=== PATIENT | male | born 1950 | race African-American/Black ===

== ENCOUNTER 2019-06-04 13:23 | Inpatient (IN) ==
[2019-06-04] MEDS ORDERED: LORazepam 2 MG/1 ML VIAL IV PRN (15:39)
[2019-06-04] MEDS ORDERED: ONDANSETRON 4 MG/2 ML VIAL IV PRN (15:39)
[2019-06-04] MEDS ORDERED: LORazepam 1 MG TABLET PO SCH (16:00)
[2019-06-04 16:27] LABS: Basophils # 0.1 10*3/uL (0.0-0.2); Basophils % 1.1 % (0.0-0.8); Eosinophils # 0.1 10*3/uL (0.0-0.87); Eosinophils % 1.4 % (0.00-10.9); Hematocrit 39.9 VOL% (42.0-52.0); Immature Granulocytes % 0.1 %; Immature Granulocytes Absolute 0.01 #; Lymphocytes # 2.2 10*3/uL (1.4-4.0); Lymphocytes % 27.5 % (21.2-54.2); Mean Corpuscular HGB Conc 32.6 GM/DL (32-36); Mean Corpuscular Volume 93.9 FL (87-102); Mean Platelet Volume 9.7 FL (9.6-12.0); Monocytes % 6.9 % (1.7-12.7); Platelet Count 314 T/CUMM (130-400); Red Blood Count 4.25 MC/CUMM (3.8-5.5)
[2019-06-04 16:57] LABS: Alanine Aminotransferase 14 U/L (16-61); Albumin 3.4 G/DL (3.4-5.0); Alkaline Phosphatase 98 U/L (45-117); Aspartate Amino Transferase 17 U/L (0-37); Bilirubin,Total < 0.39 MG/DL (0.2-1.0); Blood Urea Nitrogen 20 MG/DL (7-18); Calcium 8.6 MG/DL (8.5-10.1); Glucose 77 MG/DL (74-106); Osmolality,Calculated 284.1 MOS/KG (273-304); Total Protein 7.6 G/DL (6.4-8.3)
[2019-06-04] MEDS ORDERED: THIAMINE INJ 100 MG, FOLIC ACID INJ 1 MG, MULTIVITAMIN INJ 10 ML in SODIUM CHLORIDE 0.9... IV ONE (17:00)
[2019-06-04] MEDS: ENOXAPARIN 40 MG/0.4 ML SYRINGE SUBCUT SCH (17:03)
[2019-06-04] MEDS: chlordiazePOXIDE 25 MG CAPSULE PO SCH ×2 (17:03→21:07)
[2019-06-04] MEDS: NICOTINE 21 MG/24 HR PATCH TRANSDERM SCH (17:03)
[2019-06-04] MEDS: METHOCARBAMOL 750 MG TABLET PO PRN (17:08)
[2019-06-04] MEDS: SUCRALFATE 1 GM TABLET PO SCH ×2 (17:36→21:07)
[2019-06-04] MEDS: MORPHINE 4 MG/1 ML VIAL IV PRN ×2 (17:54→23:31)
[2019-06-04] MEDS: PANTOPRAZOLE 40 MG TABLET PO SCH (21:07)
[2019-06-05] MEDS: chlordiazePOXIDE 25 MG CAPSULE PO SCH ×3 (04:08→17:18)
[2019-06-05] MEDS: MORPHINE 4 MG/1 ML VIAL IV PRN (04:58)
[2019-06-05 05:16] LABS: Basophils # 0.1 10*3/uL (0.0-0.2); Eosinophils # 0.2 10*3/uL (0.0-0.87); Eosinophils % 3.4 % (0.00-10.9); Hemoglobin 12.2 GM/DL (14.0-18.0); Immature Granulocytes % 0.3 %; Immature Granulocytes Absolute 0.02 #; Lymphocytes # 2.8 10*3/uL (1.4-4.0); Lymphocytes % 39.8 % (21.2-54.2); Mean Corpuscular HGB Conc 31.3 GM/DL (32-36); Mean Corpuscular Volume 95.1 FL (87-102); Monocytes % 7.3 % (1.7-12.7); Neutrophils % 48.2 % (38.7-73.9); Platelet Count 279 T/CUMM (130-400); Red Cell Distribution Width 13.8 % (9.3-17.3); White Blood Count 7.1 T/CUMM (4-12)
[2019-06-05 05:47] LABS: Alanine Aminotransferase 12 U/L (16-61); Albumin 2.8 G/DL (3.4-5.0); Alkaline Phosphatase 86 U/L (45-117); Aspartate Amino Transferase 15 U/L (0-37); Bilirubin,Total < 0.39 MG/DL (0.2-1.0); Blood Urea Nitrogen 24 MG/DL (7-18); Calcium 8.3 MG/DL (8.5-10.1); Glucose 85 MG/DL (74-106); Osmolality,Calculated 290.7 MOS/KG (273-304); Total Protein 6.5 G/DL (6.4-8.3)
[2019-06-05] MEDS: amLODIPine 5 MG TABLET PO SCH (08:27)
[2019-06-05] MEDS: SUCRALFATE 1 GM TABLET PO SCH ×4 (08:27→21:28)
[2019-06-05] MEDS: PANTOPRAZOLE 40 MG TABLET PO SCH ×2 (08:27→21:28)
[2019-06-05] MEDS ORDERED: PANTOPRAZOLE 40 MG TABLET PO SCH (09:00)
[2019-06-05] MEDS: NICOTINE 21 MG/24 HR PATCH TRANSDERM SCH (10:32)
[2019-06-05] MEDS: METHOCARBAMOL 750 MG TABLET PO PRN ×2 (12:22→21:28)
[2019-06-05] MEDS: LIDOCAINE 5% PATCH TRANSDERM SCH (15:02)
[2019-06-05] MEDS: DICLOFENAC 1% GEL 100 GM TUBE TOP SCH ×2 (15:09→22:06)
[2019-06-05] MEDS: ENOXAPARIN 40 MG/0.4 ML SYRINGE SUBCUT SCH (17:18)
[2019-06-05] MEDS ORDERED: IBUPROFEN 600 MG TABLET PO PRN (21:18)
[2019-06-06] MEDS: chlordiazePOXIDE 25 MG CAPSULE PO SCH ×4 (02:45→23:21)
[2019-06-06 06:10] LABS: Basophils # 0.1 10*3/uL (0.0-0.2); Basophils % 1.1 % (0.0-0.8); Eosinophils # 0.2 10*3/uL (0.0-0.87); Eosinophils % 2.9 % (0.00-10.9); Hematocrit 39.3 VOL% (42.0-52.0); Hemoglobin 12.5 GM/DL (14.0-18.0); Immature Granulocytes % 0.2 %; Immature Granulocytes Absolute 0.01 #; Lymphocytes # 2.1 10*3/uL (1.4-4.0); Mean Corpuscular HGB Conc 31.8 GM/DL (32-36); Mean Corpuscular Volume 95.6 FL (87-102); Mean Platelet Volume 11.5 FL (9.6-12.0); Neutrophils % 56.8 % (38.7-73.9); Platelet Count 203 T/CUMM (130-400); Red Blood Count 4.11 MC/CUMM (3.8-5.5); Red Cell Distribution Width 13.7 % (9.3-17.3); White Blood Count 6.6 T/CUMM (4-12)
[2019-06-06] MEDS: METHOCARBAMOL 750 MG TABLET PO PRN ×2 (06:15→20:49)
[2019-06-06 06:44] LABS: Alanine Aminotransferase 13 U/L (16-61); Albumin 2.8 G/DL (3.4-5.0); Alkaline Phosphatase 85 U/L (45-117); Aspartate Amino Transferase 17 U/L (0-37); Bilirubin,Total < 0.39 MG/DL (0.2-1.0); Blood Urea Nitrogen 20 MG/DL (7-18); Calcium 8.4 MG/DL (8.5-10.1); Glucose 74 MG/DL (74-106); Osmolality,Calculated 276.7 MOS/KG (273-304); Total Protein 6.6 G/DL (6.4-8.3)
[2019-06-06] MEDS: PANTOPRAZOLE 40 MG TABLET PO SCH ×2 (09:37→20:51)
[2019-06-06] MEDS: NICOTINE 21 MG/24 HR PATCH TRANSDERM SCH (09:37)
[2019-06-06] MEDS: SUCRALFATE 1 GM TABLET PO SCH ×4 (09:37→20:49)
[2019-06-06] MEDS: amLODIPine 5 MG TABLET PO SCH (09:37)
[2019-06-06] MEDS: LIDOCAINE 5% PATCH TRANSDERM SCH (13:30)
[2019-06-06] MEDS: DICLOFENAC 1% GEL 100 GM TUBE TOP SCH ×3 (13:33→21:11)
[2019-06-06] MEDS: ENOXAPARIN 40 MG/0.4 ML SYRINGE SUBCUT SCH (16:12)
[2019-06-06] MEDS ORDERED: MAGNESIUM SULF RIDER 2 GM in PREMIX 1 EACH IV ONE (18:37)
[2019-06-06] MEDS ORDERED: PROPRANOLOL 20 MG TABLET PO SCH (21:00)
[2019-06-07 06:33] LABS: Basophils # 0.1 10*3/uL (0.0-0.2); Eosinophils # 0.2 10*3/uL (0.0-0.87); Eosinophils % 2.7 % (0.00-10.9); Hematocrit 40.1 VOL% (42.0-52.0); Immature Granulocytes % 0.1 %; Immature Granulocytes Absolute 0.01 #; Lymphocytes # 2.3 10*3/uL (1.4-4.0); Lymphocytes % 25.5 % (21.2-54.2); Mean Corpuscular HGB Conc 32.4 GM/DL (32-36); Mean Corpuscular Volume 93.9 FL (87-102); Mean Platelet Volume 10.4 FL (9.6-12.0); Monocytes % 5.7 % (1.7-12.7); Platelet Count 313 T/CUMM (130-400); Red Blood Count 4.27 MC/CUMM (3.8-5.5); Red Cell Distribution Width 13.8 % (9.3-17.3); White Blood Count 8.9 T/CUMM (4-12)
[2019-06-07 07:09] LABS: Alanine Aminotransferase 22 U/L (16-61); Albumin 3.5 G/DL (3.4-5.0); Alkaline Phosphatase 96 U/L (45-117); Aspartate Amino Transferase 28 U/L (0-37); Bilirubin,Total < 0.39 MG/DL (0.2-1.0); Blood Urea Nitrogen 41 MG/DL (7-18); Calcium 9.3 MG/DL (8.5-10.1); Glucose 91 MG/DL (74-106); Osmolality,Calculated 284.7 MOS/KG (273-304); Total Protein 7.9 G/DL (6.4-8.3)
[2019-06-07] MEDS ORDERED: PROPRANOLOL 20 MG TABLET PO SCH (09:00)
[2019-06-07 10:08] VITALS: BP 142/85
[2019-06-07] MEDS: PANTOPRAZOLE 40 MG TABLET PO SCH (10:08)
[2019-06-07] MEDS: chlordiazePOXIDE 25 MG CAPSULE PO SCH (10:08)
[2019-06-07] MEDS: SUCRALFATE 1 GM TABLET PO SCH (10:09)
[2019-06-07] MEDS: LIDOCAINE 5% PATCH TRANSDERM SCH ×2 (10:09→10:14)
[2019-06-07] MEDS: NICOTINE 21 MG/24 HR PATCH TRANSDERM SCH (10:09)
[2019-06-07] MEDS: DICLOFENAC 1% GEL 100 GM TUBE TOP SCH (10:12)
== END 2019-06-07 11:15 | DRG 897 ==
LOC: N.4E 14:18
PROVIDERS: ADMIT Internal Medicine; ATTEND Internal Medicine

== ENCOUNTER 2019-12-08 03:27 | Observation (INO) ==
[2019-12-08] MEDS ORDERED: MORPHINE 4 MG/1 ML VIAL IV STA (03:45)
[2019-12-08] MEDS ORDERED: NITROGLYCERIN 2% OINT 1 INCH/GM PACK TOP STA (03:45)
[2019-12-08] MEDS ORDERED: ALUM/MAG/SIMETH/LIDO VISC 1:1 30 ML BOTTLE PO STA (03:45)
[2019-12-08] MEDS ORDERED: ASPIRIN 325 MG TABLET PO STA (03:45)
[2019-12-08] MEDS ORDERED: ONDANSETRON 4 MG/2 ML VIAL IV STA (03:45)
[2019-12-08] MEDS ORDERED: PANTOPRAZOLE 40 MG VIAL IV STA (03:45)
[2019-12-08] MEDS ORDERED: ALUM/MAG/SIMETH/LIDO VISC 1:1 30 ML BOTTLE PO ONE (03:45)
[2019-12-08] MEDS ORDERED: NITROGLYCERIN 2% OINT 1 INCH/GM PACK TOP ONE (04:11)
[2019-12-08] MEDS ORDERED: ONDANSETRON 4 MG/2 ML VIAL ONE (04:11)
[2019-12-08] MEDS ORDERED: ASPIRIN 325 MG TABLET ONE (04:12)
[2019-12-08] MEDS ORDERED: MORPHINE 4 MG/1 ML VIAL ONE (04:12)
[2019-12-08 04:16] LABS: Basophils # 0.1 10*3/uL (0.0-0.2); Basophils % 0.6 % (0.0-0.8); Eosinophils % 0.2 % (0.00-10.9); Hematocrit 44.4 VOL% (42.0-52.0); Hemoglobin 14.6 GM/DL (14.0-18.0); Immature Granulocytes % 0.2 %; Immature Granulocytes Absolute 0.04 #; Lymphocytes # 1.2 10*3/uL (1.4-4.0); Lymphocytes % 6.8 % (21.2-54.2); Mean Corpuscular HGB Conc 32.9 GM/DL (32-36); Mean Corpuscular Volume 92.1 FL (87-102); Mean Platelet Volume 9.3 FL (9.6-12.0); Monocytes % 3.8 % (1.7-12.7); Neutrophils % 88.4 % (38.7-73.9); Platelet Count 365 T/CUMM (130-400); Red Blood Count 4.82 MC/CUMM (3.8-5.5); Red Cell Distribution Width 13.6 % (9.3-17.3)
[2019-12-08 04:28] LABS: INR 0.9; PT Patient Result 9.9 SECS (9.6-12.2)
[2019-12-08 04:53] LABS: Albumin 3.7 G/DL (3.4-5.0); Bilirubin,Total 1.3 MG/DL (0.2-1.0); Calcium 9.6 MG/DL (8.5-10.1); Osmolality,Calculated 269.4 MOS/KG (273-304); Total Protein 8.7 G/DL (6.4-8.3)
[2019-12-08] MEDS ORDERED: PIPERACILLIN/TAZOBACTAM 3,375 MG in SODIUM CHLORIDE 0.9% 100 ML IV STA (04:56)
[2019-12-08] MEDS ORDERED: PANTOPRAZOLE 40 MG VIAL IV ONE (05:06)
[2019-12-08] MEDS ORDERED: PIPERACILLIN/TAZOBACTAM 3,375 MG VIAL IV ONE (05:07)
[2019-12-08] MEDS ORDERED: ONDANSETRON 4 MG/2 ML VIAL IV PRN (06:51)
[2019-12-08] MEDS: SODIUM CHLORIDE 0.9% 1,000 ML IV SCH (07:10)
[2019-12-08] MEDS: ENOXAPARIN 40 MG/0.4 ML SYRINGE SUBCUT SCH (08:07)
[2019-12-08] MEDS: MORPHINE 4 MG/1 ML VIAL IV PRN ×3 (08:07→21:56)
[2019-12-08] MEDS: TAMSULOSIN 0.4 MG CAPSULE PO SCH (10:26)
[2019-12-08] MEDS: amLODIPine 10 MG TABLET PO SCH (10:26)
[2019-12-08] MEDS: PANTOPRAZOLE 40 MG TABLET PO SCH (10:26)
[2019-12-08] MEDS: AZITHROMYCIN 250 MG TABLET PO SCH (10:26)
[2019-12-08] MEDS: FLUTICASONE 50 MCG NASAL SPRAY 16 GM BOTTLE BOTH NARES SCH (10:27)
[2019-12-08] MEDS: cefTRIAXone 2,000 MG in SYRINGE 1 EACH IV SCH (10:27)
[2019-12-08] MEDS ORDERED: REGADENOSON 0.4 MG/5 ML SYRINGE IV ONE (11:55)
[2019-12-09] MEDS: SODIUM CHLORIDE 0.9% 1,000 ML IV SCH (00:51)
[2019-12-09] MEDS: MORPHINE 4 MG/1 ML VIAL IV PRN (03:20)
[2019-12-09 05:39] LABS: Basophils # 0.1 10*3/uL (0.0-0.2); Basophils % 0.6 % (0.0-0.8); Eosinophils # 0.2 10*3/uL (0.0-0.87); Eosinophils % 1.2 % (0.00-10.9); Hematocrit 39.3 VOL% (42.0-52.0); Hemoglobin 13.2 GM/DL (14.0-18.0); Immature Granulocytes % 0.3 %; Immature Granulocytes Absolute 0.04 #; Lymphocytes # 1.7 10*3/uL (1.4-4.0); Lymphocytes % 13.5 % (21.2-54.2); Mean Corpuscular HGB Conc 33.6 GM/DL (32-36); Mean Corpuscular Volume 92.5 FL (87-102); Mean Platelet Volume 9.7 FL (9.6-12.0); Monocytes % 6.3 % (1.7-12.7); Neutrophils % 78.1 % (38.7-73.9); Platelet Count 319 T/CUMM (130-400); Red Blood Count 4.25 MC/CUMM (3.8-5.5); Red Cell Distribution Width 13.7 % (9.3-17.3); White Blood Count 12.5 T/CUMM (4-12)
[2019-12-09 06:07] LABS: Calcium 8.6 MG/DL (8.5-10.1); Osmolality,Calculated 270.4 MOS/KG (273-304)
[2019-12-09] MEDS: ENOXAPARIN 40 MG/0.4 ML SYRINGE SUBCUT SCH (06:27)
[2019-12-09] MEDS: AZITHROMYCIN 250 MG TABLET PO SCH (08:41)
[2019-12-09] MEDS: FLUTICASONE 50 MCG NASAL SPRAY 16 GM BOTTLE BOTH NARES SCH (08:41)
[2019-12-09] MEDS: TAMSULOSIN 0.4 MG CAPSULE PO SCH (08:41)
[2019-12-09] MEDS: amLODIPine 10 MG TABLET PO SCH (08:42)
[2019-12-09] MEDS: cefTRIAXone 2,000 MG in SYRINGE 1 EACH IV SCH ×2 (08:42→10:47)
[2019-12-09] MEDS: PANTOPRAZOLE 40 MG TABLET PO SCH (08:42)
[2019-12-09 12:34] VITALS: BP 146/71
== END 2019-12-09 13:35 | disposition home or self-care (01) ==
LOC: SUATTDRO → EDBD → EDUNIT# → N.EDINP 03:27 → N.ED 03:27 → N.2W 08:42
PROVIDERS: ADMIT Internal Medicine; ATTEND Internal Medicine

== ENCOUNTER 2019-12-21 15:12 | Inpatient (IN) ==
[2019-12-21] MEDS ORDERED: SODIUM CHLORIDE 0.9% 500 ML IV STA (15:34)
[2019-12-21] MEDS ORDERED: ONDANSETRON 4 MG/2 ML VIAL IV STA (15:36)
[2019-12-21] MEDS ORDERED: ONDANSETRON 4 MG/2 ML VIAL ONE (15:38)
[2019-12-21 15:50] LABS: Basophils # 0.1 10*3/uL (0.0-0.2); Basophils % 0.3 % (0.0-0.8); Hematocrit 43.7 VOL% (42.0-52.0); Hemoglobin 14.7 GM/DL (14.0-18.0); Immature Granulocytes % 0.5 %; Immature Granulocytes Absolute 0.13 #; Lymphocytes % 3.6 % (21.2-54.2); Mean Corpuscular HGB Conc 33.6 GM/DL (32-36); Mean Corpuscular Volume 90.1 FL (87-102); Mean Platelet Volume 9.8 FL (9.6-12.0); Monocytes % 4.8 % (1.7-12.7); Neutrophils % 90.8 % (38.7-73.9); Platelet Count 482 T/CUMM (130-400); Red Blood Count 4.85 MC/CUMM (3.8-5.5); Red Cell Distribution Width 13.3 % (9.3-17.3)
[2019-12-21 16:14] LABS: Albumin 3.8 G/DL (3.4-5.0); Bilirubin,Total 0.8 MG/DL (0.2-1.0); Calcium 9.4 MG/DL (8.5-10.1); Total Protein 8.6 G/DL (6.4-8.3)
[2019-12-21 16:30] LABS: Hypochromasia 2+; Lymphocytes 2 % (20-55); Segmented Neutrophils 90 % (50-85); Total Cells Counted 100
[2019-12-21 16:31] LABS: Anisocytosis Slight; Polychromasia Few
[2019-12-21 16:33] LABS: Platelet Estimate Normal
[2019-12-21] MEDS: NICOTINE 14 MG/24 HR PATCH TRANSDERM SCH (19:09)
[2019-12-21] MEDS: PIPERACILLIN/TAZOBACTAM 3,375 MG in SODIUM CHLORIDE 0.9% 100 ML IV SCH (19:10)
[2019-12-21] MEDS: SODIUM CHLORIDE 0.9% 1,000 ML IV SCH (19:10)
[2019-12-21 19:11] LABS: Apearance,Urine CLEAR (Clear); Bilirubin,Urine Negative (Negative); Blood, Urine Small mg/dL (Negative); Glucose,Urine (UA) Negative (Negative); Hyaline Casts,Urine 6 /LPF (0-3); Ketones,Urine 80 mg/dL (Negative); Nitrite,Urine Negative (Negative); Protein,Urine 100 MG/DL; RBC,Urine 2 /HPF (0-4); Squamous Epithelial Cell,Urine Occasional /HPF (0-10); Urine Color Yellow (Yellow); Urine Urobilinogen < 2.0 EU/DL (0.2-1.0); WBC,Urine 1 /HPF (0-6)
[2019-12-21] MEDS ORDERED: INFLUENZA VIRUS VACCINE 0.5 ML SYRINGE IM ONE (19:22)
[2019-12-21] MEDS ORDERED: POTASSIUM CHLORIDE 20 MEQ/15 ML UDCUP PO ONE (19:48)
[2019-12-21] MEDS ORDERED: ONDANSETRON 4 MG TABLET PO PRN (19:48)
[2019-12-21] MEDS ORDERED: THIAMINE INJ 100 MG, FOLIC ACID INJ 1 MG, MULTIVITAMIN INJ 10 ML in SODIUM CHLORIDE 0.9... IV ONE (20:00)
[2019-12-21 20:40] LABS: Hematocrit 44.1 VOL% (42.0-52.0); Hemoglobin 14.6 GM/DL (14.0-18.0)
[2019-12-21 20:49] LABS: INR 0.9; PT Patient Result 10.2 SECS (9.6-12.2)
[2019-12-21] MEDS: PANTOPRAZOLE 40 MG VIAL IV SCH (20:59)
[2019-12-21 21:02] LABS: Troponin I < 0.015 NG/ML (0.00-0.045)
[2019-12-21] MEDS: CYCLOBENZAPRINE 10 MG TABLET PO SCH (21:06)
[2019-12-21] MEDS: ACETAMINOPHEN 325 MG TABLET PO PRN (22:30)
[2019-12-22] MEDS: PIPERACILLIN/TAZOBACTAM 3,375 MG in SODIUM CHLORIDE 0.9% 100 ML IV SCH ×3 (02:32→17:30)
[2019-12-22 03:01] LABS: Barbiturates Screen,Urine Negative (Negative); Benzodiazepines Screen,Urine Negative (Negative); Cannabinoid Screen,Urine Negative (Negative); Opiate Screen,Urine Negative (Negative); Phencyclidine Screen,Urine Negative (Negative)
[2019-12-22] MEDS: ACETAMINOPHEN 325 MG TABLET PO PRN ×2 (03:41→21:44)
[2019-12-22] MEDS: SODIUM CHLORIDE 0.9% 1,000 ML IV SCH ×3 (04:20→21:43)
[2019-12-22 06:00] LABS: Hematocrit 36.6 VOL% (42.0-52.0); Hemoglobin 12.3 GM/DL (14.0-18.0); Mean Corpuscular HGB Conc 33.6 GM/DL (32-36); Mean Corpuscular Volume 90.1 FL (87-102); Red Blood Count 4.06 MC/CUMM (3.8-5.5); White Blood Count 26.7 T/CUMM (4-12)
[2019-12-22 06:01] LABS: Basophils # 0.1 10*3/uL (0.0-0.2); Basophils % 0.3 % (0.0-0.8); Immature Granulocytes % 0.6 %; Immature Granulocytes Absolute 0.15 #; Lymphocytes # 1.6 10*3/uL (1.4-4.0); Lymphocytes % 5.8 % (21.2-54.2); Mean Platelet Volume 9.8 FL (9.6-12.0); Monocytes % 5.2 % (1.7-12.7); Neutrophils % 88.1 % (38.7-73.9); Platelet Count 382 T/CUMM (130-400); Red Cell Distribution Width 13.6 % (9.3-17.3)
[2019-12-22 06:15] LABS: Calcium 8.5 MG/DL (8.5-10.1); Osmolality,Calculated 284.4 MOS/KG (273-304)
[2019-12-22 06:23] LABS: Band Neutrophils 1 % (0-10); Hypochromasia 1+; Lymphocytes 6 % (20-55); Segmented Neutrophils 92 % (50-85); Total Cells Counted 100
[2019-12-22 06:24] LABS: Macrocytosis Slight
[2019-12-22] MEDS: amLODIPine 10 MG TABLET PO SCH (08:53)
[2019-12-22] MEDS: NICOTINE 14 MG/24 HR PATCH TRANSDERM SCH (08:53)
[2019-12-22] MEDS: PANTOPRAZOLE 40 MG VIAL IV SCH ×2 (08:53→21:42)
[2019-12-22] MEDS: FLUTICASONE 50 MCG NASAL SPRAY 16 GM BOTTLE BOTH NARES SCH (08:54)
[2019-12-22] MEDS: TAMSULOSIN 0.4 MG CAPSULE PO SCH (08:54)
[2019-12-22] MEDS: POTASSIUM CHLORIDE RIDER 10 MEQ in PREMIX 1 EACH IV PRN ×3 (10:37→13:44)
[2019-12-22] MEDS: LORazepam 2 MG/1 ML VIAL IV PRN ×2 (17:20→21:45)
[2019-12-22] MEDS: ALUMINUM/MAGNES/SIMETH MAX STR 30 ML UDCUP PO PRN (19:37)
[2019-12-22] MEDS: ONDANSETRON 4 MG/2 ML VIAL IV PRN (19:44)
[2019-12-22] MEDS: LORATADINE 10 MG TABLET PO PRN (21:43)
[2019-12-22] MEDS: CYCLOBENZAPRINE 10 MG TABLET PO SCH (21:44)
[2019-12-23] MEDS: PIPERACILLIN/TAZOBACTAM 3,375 MG in SODIUM CHLORIDE 0.9% 100 ML IV SCH ×3 (02:39→17:39)
[2019-12-23 05:21] LABS: Basophils # 0.1 10*3/uL (0.0-0.2); Basophils % 0.6 % (0.0-0.8); Eosinophils # 0.2 10*3/uL (0.0-0.87); Eosinophils % 0.9 % (0.00-10.9); Hematocrit 36.6 VOL% (42.0-52.0); Hemoglobin 11.9 GM/DL (14.0-18.0); Immature Granulocytes % 0.6 %; Immature Granulocytes Absolute 0.11 #; Lymphocytes # 1.2 10*3/uL (1.4-4.0); Lymphocytes % 6.1 % (21.2-54.2); Mean Corpuscular HGB Conc 32.5 GM/DL (32-36); Mean Corpuscular Volume 93.6 FL (87-102); Mean Platelet Volume 9.9 FL (9.6-12.0); Monocytes % 4.6 % (1.7-12.7); Neutrophils % 87.2 % (38.7-73.9); Platelet Count 334 T/CUMM (130-400); Red Blood Count 3.91 MC/CUMM (3.8-5.5); Red Cell Distribution Width 13.8 % (9.3-17.3); White Blood Count 19.4 T/CUMM (4-12)
[2019-12-23 05:50] LABS: Calcium 8.5 MG/DL (8.5-10.1); Osmolality,Calculated 271.8 MOS/KG (273-304)
[2019-12-23] MEDS: SODIUM CHLORIDE 0.9% 1,000 ML IV SCH ×3 (06:05→16:37)
[2019-12-23] MEDS ORDERED: propofoL 200 MG/20 ML VIAL IV ONE (09:00)
[2019-12-23] MEDS ORDERED: LIDOCAINE 100 MG/5 ML SYRINGE ONE (09:00)
[2019-12-23] MEDS: amLODIPine 10 MG TABLET PO SCH (09:02)
[2019-12-23] MEDS: NICOTINE 14 MG/24 HR PATCH TRANSDERM SCH (09:02)
[2019-12-23] MEDS: TAMSULOSIN 0.4 MG CAPSULE PO SCH (09:02)
[2019-12-23] MEDS: PANTOPRAZOLE 40 MG VIAL IV SCH ×2 (09:03→20:41)
[2019-12-23] MEDS: FLUTICASONE 50 MCG NASAL SPRAY 16 GM BOTTLE BOTH NARES SCH (09:03)
[2019-12-23] MEDS: LACTATED RINGERS 1,000 ML IV SCH ×2 (09:03→09:30)
[2019-12-23] MEDS: POTASSIUM CHLORIDE RIDER 10 MEQ in PREMIX 1 EACH IV PRN ×4 (12:02→16:37)
[2019-12-23] MEDS: ALUMINUM/MAGNES/SIMETH MAX STR 30 ML UDCUP PO PRN ×2 (13:41→20:41)
[2019-12-23] MEDS: ACETAMINOPHEN 325 MG TABLET PO PRN ×2 (13:42→20:41)
[2019-12-23] MEDS: LORATADINE 10 MG TABLET PO PRN (20:41)
[2019-12-23] MEDS: CYCLOBENZAPRINE 10 MG TABLET PO SCH (20:41)
[2019-12-23] MEDS: LORazepam 2 MG/1 ML VIAL IV PRN (20:42)
[2019-12-23] MEDS: ONDANSETRON 4 MG/2 ML VIAL IV PRN (20:43)
[2019-12-24] MEDS: SODIUM CHLORIDE 0.9% 1,000 ML IV SCH ×2 (01:22→18:38)
[2019-12-24] MEDS: POTASSIUM CHLORIDE RIDER 10 MEQ in PREMIX 1 EACH IV PRN ×2 (01:23→03:03)
[2019-12-24] MEDS: PIPERACILLIN/TAZOBACTAM 3,375 MG in SODIUM CHLORIDE 0.9% 100 ML IV SCH ×3 (02:31→18:37)
[2019-12-24] MEDS: ALUMINUM/MAGNES/SIMETH MAX STR 30 ML UDCUP PO PRN (06:57)
[2019-12-24] MEDS: TAMSULOSIN 0.4 MG CAPSULE PO SCH (10:24)
[2019-12-24] MEDS: FLUTICASONE 50 MCG NASAL SPRAY 16 GM BOTTLE BOTH NARES SCH (10:24)
[2019-12-24] MEDS: NICOTINE 14 MG/24 HR PATCH TRANSDERM SCH (10:24)
[2019-12-24] MEDS: PANTOPRAZOLE 40 MG VIAL IV SCH ×2 (10:24→22:01)
[2019-12-24] MEDS: amLODIPine 10 MG TABLET PO SCH (10:33)
[2019-12-24] MEDS: LORazepam 2 MG/1 ML VIAL IV PRN (10:34)
[2019-12-24] MEDS: SUCRALFATE 1 GM/10 ML UDCUP PO SCH ×2 (16:49→22:02)
[2019-12-24] MEDS: ALUM/MAG/SIMETH/LIDO VISC 1:1 30 ML BOTTLE PO PRN (18:48)
[2019-12-24] MEDS: CYCLOBENZAPRINE 10 MG TABLET PO SCH (22:02)
[2019-12-25] MEDS: PIPERACILLIN/TAZOBACTAM 3,375 MG in SODIUM CHLORIDE 0.9% 100 ML IV SCH ×3 (02:53→21:19)
[2019-12-25 06:22] LABS: Basophils # 0.1 10*3/uL (0.0-0.2); Basophils % 0.8 % (0.0-0.8); Eosinophils # 0.6 10*3/uL (0.0-0.87); Eosinophils % 4.4 % (0.00-10.9); Hematocrit 36.2 VOL% (42.0-52.0); Hemoglobin 11.7 GM/DL (14.0-18.0); Immature Granulocytes % 0.4 %; Immature Granulocytes Absolute 0.05 #; Lymphocytes # 1.9 10*3/uL (1.4-4.0); Lymphocytes % 15.4 % (21.2-54.2); Mean Corpuscular HGB Conc 32.3 GM/DL (32-36); Mean Corpuscular Volume 93.3 FL (87-102); Mean Platelet Volume 10.1 FL (9.6-12.0); Monocytes % 6.2 % (1.7-12.7); Neutrophils % 72.8 % (38.7-73.9); Platelet Count 333 T/CUMM (130-400); Red Blood Count 3.88 MC/CUMM (3.8-5.5); Red Cell Distribution Width 13.3 % (9.3-17.3); White Blood Count 12.5 T/CUMM (4-12)
[2019-12-25 06:51] LABS: Calcium 8.7 MG/DL (8.5-10.1)
[2019-12-25] MEDS ORDERED: MAGNESIUM SULF RIDER 2 GM in PREMIX 1 EACH IV PRN (07:48)
[2019-12-25] MEDS ORDERED: MAGNESIUM SULF RIDER 4 GM in PREMIX 1 EACH IV PRN (07:48)
[2019-12-25] MEDS: SUCRALFATE 1 GM/10 ML UDCUP PO SCH ×4 (09:17→21:20)
[2019-12-25] MEDS: FOLIC ACID 1 MG TABLET PO SCH (09:17)
[2019-12-25] MEDS: amLODIPine 10 MG TABLET PO SCH (09:18)
[2019-12-25] MEDS: TAMSULOSIN 0.4 MG CAPSULE PO SCH (09:18)
[2019-12-25] MEDS: NICOTINE 14 MG/24 HR PATCH TRANSDERM SCH (09:20)
[2019-12-25] MEDS: FLUTICASONE 50 MCG NASAL SPRAY 16 GM BOTTLE BOTH NARES SCH (09:20)
[2019-12-25] MEDS: PANTOPRAZOLE 40 MG VIAL IV SCH ×2 (09:22→22:36)
[2019-12-25] MEDS: ALUM/MAG/SIMETH/LIDO VISC 1:1 30 ML BOTTLE PO PRN (17:05)
[2019-12-25] MEDS: SODIUM CHLORIDE 0.9% 1,000 ML IV SCH (17:05)
[2019-12-25] MEDS: CYCLOBENZAPRINE 10 MG TABLET PO SCH (21:20)
[2019-12-26] MEDS: PIPERACILLIN/TAZOBACTAM 3,375 MG in SODIUM CHLORIDE 0.9% 100 ML IV SCH ×2 (05:34→14:01)
[2019-12-26] MEDS: SODIUM CHLORIDE 0.9% 1,000 ML IV SCH ×4 (05:35→09:54)
[2019-12-26] MEDS: ALUM/MAG/SIMETH/LIDO VISC 1:1 30 ML BOTTLE PO PRN (05:43)
[2019-12-26 09:17] LABS: Basophils # 0.1 10*3/uL (0.0-0.2); Basophils % 0.8 % (0.0-0.8); Eosinophils # 0.6 10*3/uL (0.0-0.87); Eosinophils % 5.1 % (0.00-10.9); Hematocrit 38.2 VOL% (42.0-52.0); Hemoglobin 12.2 GM/DL (14.0-18.0); Immature Granulocytes % 0.3 %; Immature Granulocytes Absolute 0.04 #; Lymphocytes # 1.9 10*3/uL (1.4-4.0); Lymphocytes % 15.8 % (21.2-54.2); Mean Corpuscular HGB Conc 31.9 GM/DL (32-36); Mean Corpuscular Volume 92.5 FL (87-102); Mean Platelet Volume 9.8 FL (9.6-12.0); Monocytes % 6.1 % (1.7-12.7); Neutrophils % 71.9 % (38.7-73.9); Platelet Count 351 T/CUMM (130-400); Red Blood Count 4.13 MC/CUMM (3.8-5.5); Red Cell Distribution Width 13.2 % (9.3-17.3); White Blood Count 11.8 T/CUMM (4-12)
[2019-12-26 09:41] LABS: Osmolality,Calculated 261.7 MOS/KG (273-304)
[2019-12-26] MEDS: FOLIC ACID 1 MG TABLET PO SCH (09:48)
[2019-12-26] MEDS: SUCRALFATE 1 GM/10 ML UDCUP PO SCH ×2 (09:48→12:41)
[2019-12-26] MEDS: LORATADINE 10 MG TABLET PO PRN (09:48)
[2019-12-26] MEDS: amLODIPine 10 MG TABLET PO SCH (09:48)
[2019-12-26] MEDS: TAMSULOSIN 0.4 MG CAPSULE PO SCH (09:48)
[2019-12-26] MEDS: NICOTINE 14 MG/24 HR PATCH TRANSDERM SCH (09:49)
[2019-12-26] MEDS: FLUTICASONE 50 MCG NASAL SPRAY 16 GM BOTTLE BOTH NARES SCH (09:49)
[2019-12-26] MEDS: PANTOPRAZOLE 40 MG VIAL IV SCH (09:50)
[2019-12-26 13:31] VITALS: BP 136/82
== END 2019-12-26 14:15 | disposition home health service (06) | DRG 378 ==
LOC: N.ED 15:12 → N.EDINP 17:27 → SUATTDRO 17:27 → N.5E 18:14
PROVIDERS: ADMIT Internal Medicine; ATTEND Internal Medicine Cardiovascular Disease

== ENCOUNTER 2021-02-01 10:15 | Inpatient (IN) ==
[2021-02-01] MEDS ORDERED: ALUM/MAG/SIMETH/LIDO VISC 1:1 30 ML BOTTLE PO STA (10:31)
[2021-02-01] MEDS ORDERED: SODIUM CHLORIDE 0.9% 1,000 ML IV STA ×3 (10:31→14:17)
[2021-02-01] MEDS ORDERED: LOPERAMIDE 2 MG CAPSULE PO STA (10:31)
[2021-02-01] MEDS ORDERED: ONDANSETRON 4 MG/2 ML VIAL IV STA ×2 (10:31→12:39)
[2021-02-01 12:04] LABS: Basophils # 0.1 10*3/uL (0.0-0.2); Basophils % 0.4 % (0.0-0.8); Hematocrit 37.2 VOL% (42.0-52.0); Immature Granulocytes % 0.4 %; Immature Granulocytes Absolute 0.09 #; Lymphocytes # 1.7 10*3/uL (1.4-4.0); Lymphocytes % 7.2 % (21.2-54.2); Mean Corpuscular HGB Conc 32.3 GM/DL (32-36); Mean Corpuscular Volume 90.3 FL (87-102); Mean Platelet Volume 9.1 FL (9.6-12.0); Monocytes % 5.8 % (1.7-12.7); Neutrophils % 86.2 % (38.7-73.9); Platelet Count 387 T/CUMM (130-400); Red Blood Count 4.12 MC/CUMM (3.8-5.5); Red Cell Distribution Width 13.8 % (9.3-17.3); White Blood Count 23.3 T/CUMM (4-12)
[2021-02-01 12:32] LABS: Albumin 3.1 G/DL (3.4-5.0); Bilirubin,Total 0.6 MG/DL (0.2-1.0); Calcium 8.8 MG/DL (8.5-10.1); Osmolality,Calculated 278.4 MOS/KG (273-304); Total Protein 7.9 G/DL (6.4-8.2)
[2021-02-01] MEDS ORDERED: HYDROmorphone 2 MG/1 ML VIAL IV STA (12:39)
[2021-02-01 12:46] LABS: Lymphocytes 9 % (20-55); Segmented Neutrophils 84 % (50-85); Total Cells Counted 100
[2021-02-01 12:47] LABS: Hypochromasia Slight; Platelet Estimate Normal; Polychromasia Slight
[2021-02-01 14:30] LABS: Bacteria,Urine Occasional /HPF (Few); Bilirubin,Urine Negative (Negative); Blood, Urine Negative (Negative); Glucose,Urine (UA) Negative (Negative); Ketones,Urine Negative (Negative); Mucus,Urine Occasional /LPF (Occasional); Nitrite,Urine Negative (Negative); Protein,Urine 100 MG/DL; RBC,Urine 4 /HPF (0-4); Squamous Epithelial Cell,Urine Occasional /HPF (0-10); Urine Appearance CLEAR (Clear); Urine Color Yellow (Yellow); Urine Specific Gravity 1.055 (1.001-1.035); WBC,Urine 1 /HPF (0-6)
[2021-02-01] MEDS ORDERED: NICOTINE 21 MG/24 HR PATCH TRANSDERM PRN (15:10)
[2021-02-01] MEDS ORDERED: ONDANSETRON 4 MG/2 ML VIAL IV PRN (15:10)
[2021-02-01] MEDS ORDERED: ZALEPLON 5 MG CAPSULE PO PRN (15:10)
[2021-02-01] MEDS: hydrALAZINE 20 MG/1 ML VIAL IV PRN (16:13)
[2021-02-01] MEDS: SODIUM CHLORIDE 0.9% 1,000 ML IV SCH (16:56)
[2021-02-01] MEDS: ENOXAPARIN 40 MG/0.4 ML SYRINGE SUBCUT SCH (16:57)
[2021-02-01] MEDS: ACETAMINOPHEN 325 MG TABLET PO PRN (18:00)
[2021-02-01] MEDS: METHOCARBAMOL 500 MG TABLET PO PRN (18:00)
[2021-02-01] MEDS: LEVOFLOXACIN INJ 500 MG in PREMIX 1 EACH IV SCH (20:31)
[2021-02-01] MEDS: PANTOPRAZOLE 40 MG VIAL IV SCH (20:31)
[2021-02-01] MEDS: metroNIDAZOLE INJ 500 MG in PREMIX 1 EACH IV SCH (20:31)
[2021-02-02] MEDS: SODIUM CHLORIDE 0.9% 1,000 ML IV SCH (01:10)
[2021-02-02 05:38] LABS: Basophils # 0.1 10*3/uL (0.0-0.2); Basophils % 0.4 % (0.0-0.8); Eosinophils % 0.1 % (0.00-10.9); Hematocrit 35.2 VOL% (42.0-52.0); Hemoglobin 11.4 GM/DL (14.0-18.0); Immature Granulocytes % 0.4 %; Immature Granulocytes Absolute 0.09 #; Lymphocytes # 1.7 10*3/uL (1.4-4.0); Lymphocytes % 7.9 % (21.2-54.2); Mean Corpuscular HGB Conc 32.4 GM/DL (32-36); Mean Platelet Volume 9.6 FL (9.6-12.0); Monocytes % 5.5 % (1.7-12.7); Neutrophils % 85.7 % (38.7-73.9); Platelet Count 371 T/CUMM (130-400); Red Blood Count 3.87 MC/CUMM (3.8-5.5); Red Cell Distribution Width 14.1 % (9.3-17.3); White Blood Count 21.4 T/CUMM (4-12)
[2021-02-02] MEDS: metroNIDAZOLE INJ 500 MG in PREMIX 1 EACH IV SCH ×3 (05:47→21:35)
[2021-02-02 06:06] LABS: Hypochromasia 1+
[2021-02-02 06:07] LABS: Microcytosis 1+; Platelet Estimate Normal
[2021-02-02 06:11] LABS: Calcium 8.6 MG/DL (8.5-10.1); Osmolality,Calculated 274.7 MOS/KG (273-304); Potassium 3.7 MMOL/L (3.5-5.1)
[2021-02-02] MEDS: ALUMINUM/MAGNES/SIMETH MAX STR 30 ML UDCUP PO PRN (08:41)
[2021-02-02] MEDS: TAMSULOSIN 0.4 MG CAPSULE PO SCH (08:42)
[2021-02-02] MEDS: ACETAMINOPHEN 325 MG TABLET PO PRN ×2 (08:42→20:20)
[2021-02-02] MEDS: PANTOPRAZOLE 40 MG VIAL IV SCH ×2 (08:43→20:21)
[2021-02-02] MEDS ORDERED: ALUM/MAG/SIMETH/LIDO VISC 1:1 30 ML BOTTLE PO ONE (10:15)
[2021-02-02] MEDS: ENOXAPARIN 40 MG/0.4 ML SYRINGE SUBCUT SCH (15:52)
[2021-02-02] MEDS: POTASSIUM CHLORIDE INJ 10 MEQ in DEXTROSE 5% NACL 0.9% 1,000 ML IV SCH (15:52)
[2021-02-02] MEDS: SUCRALFATE 1 GM/10 ML UDCUP PO SCH ×2 (17:11→20:19)
[2021-02-02] MEDS: LEVOFLOXACIN INJ 500 MG in PREMIX 1 EACH IV SCH (20:19)
[2021-02-03] MEDS: POTASSIUM CHLORIDE INJ 10 MEQ in DEXTROSE 5% NACL 0.9% 1,000 ML IV SCH ×4 (00:33→20:39)
[2021-02-03] MEDS: metroNIDAZOLE INJ 500 MG in PREMIX 1 EACH IV SCH ×3 (05:07→21:58)
[2021-02-03 05:47] LABS: Basophils # 0.1 10*3/uL (0.0-0.2); Basophils % 0.8 % (0.0-0.8); Eosinophils # 0.2 10*3/uL (0.0-0.87); Eosinophils % 1.9 % (0.00-10.9); Hematocrit 30.6 VOL% (42.0-52.0); Hemoglobin 9.9 GM/DL (14.0-18.0); Immature Granulocytes % 0.3 %; Immature Granulocytes Absolute 0.03 #; Lymphocytes # 1.7 10*3/uL (1.4-4.0); Lymphocytes % 19.2 % (21.2-54.2); Mean Corpuscular HGB Conc 32.4 GM/DL (32-36); Mean Corpuscular Volume 91.6 FL (87-102); Mean Platelet Volume 9.5 FL (9.6-12.0); Monocytes % 5.8 % (1.7-12.7); Platelet Count 312 T/CUMM (130-400); Red Blood Count 3.34 MC/CUMM (3.8-5.5); Red Cell Distribution Width 14.2 % (9.3-17.3); White Blood Count 8.7 T/CUMM (4-12)
[2021-02-03 06:10] LABS: Calcium 8.3 MG/DL (8.5-10.1); Osmolality,Calculated 278.4 MOS/KG (273-304); Potassium 4.1 MMOL/L (3.5-5.1)
[2021-02-03] MEDS: PANTOPRAZOLE 40 MG VIAL IV SCH ×2 (08:30→20:55)
[2021-02-03] MEDS: SUCRALFATE 1 GM/10 ML UDCUP PO SCH ×4 (08:30→20:54)
[2021-02-03] MEDS: TAMSULOSIN 0.4 MG CAPSULE PO SCH (10:03)
[2021-02-03] MEDS: ENOXAPARIN 40 MG/0.4 ML SYRINGE SUBCUT SCH (16:29)
[2021-02-03] MEDS ORDERED: traZODone 50 MG TABLET PO ONE (20:33)
[2021-02-03] MEDS: LEVOFLOXACIN INJ 500 MG in PREMIX 1 EACH IV SCH (20:54)
[2021-02-03] MEDS: ACETAMINOPHEN 325 MG TABLET PO PRN (20:55)
[2021-02-04] MEDS: POTASSIUM CHLORIDE INJ 10 MEQ in DEXTROSE 5% NACL 0.9% 1,000 ML IV SCH ×3 (03:59→16:03)
[2021-02-04] MEDS: metroNIDAZOLE INJ 500 MG in PREMIX 1 EACH IV SCH ×3 (04:01→21:44)
[2021-02-04] MEDS: SUCRALFATE 1 GM/10 ML UDCUP PO SCH ×4 (07:52→20:31)
[2021-02-04] MEDS: TAMSULOSIN 0.4 MG CAPSULE PO SCH (08:01)
[2021-02-04] MEDS: PANTOPRAZOLE 40 MG VIAL IV SCH ×2 (08:01→20:31)
[2021-02-04 09:14] LABS: Basophils # 0.1 10*3/uL (0.0-0.2); Basophils % 1.1 % (0.0-0.8); Eosinophils # 0.3 10*3/uL (0.0-0.87); Eosinophils % 2.9 % (0.00-10.9); Hemoglobin 9.2 GM/DL (14.0-18.0); Immature Granulocytes % 0.2 %; Immature Granulocytes Absolute 0.02 #; Lymphocytes # 1.7 10*3/uL (1.4-4.0); Lymphocytes % 18.5 % (21.2-54.2); Mean Corpuscular HGB Conc 32.9 GM/DL (32-36); Mean Corpuscular Volume 89.5 FL (87-102); Mean Platelet Volume 9.3 FL (9.6-12.0); Neutrophils % 71.3 % (38.7-73.9); Platelet Count 312 T/CUMM (130-400); Red Blood Count 3.13 MC/CUMM (3.8-5.5); Red Cell Distribution Width 14.2 % (9.3-17.3); White Blood Count 9.1 T/CUMM (4-12)
[2021-02-04] MEDS: LEVOFLOXACIN INJ 500 MG in PREMIX 1 EACH IV SCH (20:30)
[2021-02-04] MEDS: TEMAZEPAM 15 MG CAPSULE PO SCH (20:31)
[2021-02-05] MEDS: POTASSIUM CHLORIDE INJ 10 MEQ in DEXTROSE 5% NACL 0.9% 1,000 ML IV SCH (03:15)
[2021-02-05 04:18] LABS: Basophils # 0.1 10*3/uL (0.0-0.2); Basophils % 0.9 % (0.0-0.8); Eosinophils # 0.3 10*3/uL (0.0-0.87); Eosinophils % 3.8 % (0.00-10.9); Hematocrit 28.7 VOL% (42.0-52.0); Hemoglobin 9.6 GM/DL (14.0-18.0); Immature Granulocytes % 0.4 %; Immature Granulocytes Absolute 0.03 #; Lymphocytes # 1.8 10*3/uL (1.4-4.0); Lymphocytes % 21.9 % (21.2-54.2); Mean Corpuscular HGB Conc 33.4 GM/DL (32-36); Mean Corpuscular Volume 89.1 FL (87-102); Monocytes % 6.9 % (1.7-12.7); Neutrophils % 66.1 % (38.7-73.9); Platelet Count 310 T/CUMM (130-400); Red Blood Count 3.22 MC/CUMM (3.8-5.5); Red Cell Distribution Width 14.1 % (9.3-17.3); White Blood Count 8.1 T/CUMM (4-12)
[2021-02-05 04:34] LABS: Calcium 7.6 MG/DL (8.5-10.1); Osmolality,Calculated 273.5 MOS/KG (273-304); Potassium 3.4 MMOL/L (3.5-5.1)
[2021-02-05] MEDS: metroNIDAZOLE INJ 500 MG in PREMIX 1 EACH IV SCH ×3 (04:37→20:42)
[2021-02-05] MEDS ORDERED: POTASSIUM CHLORIDE RIDER 10 MEQ in PREMIX 1 EACH IV SCH ×2 (07:30→20:30)
[2021-02-05] MEDS ORDERED: MAGNESIUM SULF RIDER 4 GM in PREMIX 1 EACH IV ONE (08:00)
[2021-02-05] MEDS ORDERED: LACTATED RINGERS 1,000 ML IV SCH (08:00)
[2021-02-05] MEDS: SUCRALFATE 1 GM/10 ML UDCUP PO SCH ×4 (08:07→20:45)
[2021-02-05] MEDS ORDERED: hydrALAZINE 20 MG/1 ML VIAL ONE (08:57)
[2021-02-05] MEDS: hydrALAZINE 20 MG/1 ML VIAL IV PRN (08:59)
[2021-02-05] MEDS ORDERED: LIDOCAINE 2% 5 ML VIAL ONE (09:28)
[2021-02-05] MEDS ORDERED: propofoL 200 MG/20 ML VIAL IV ONE (09:28)
[2021-02-05] MEDS: TAMSULOSIN 0.4 MG CAPSULE PO SCH (10:53)
[2021-02-05] MEDS: PANTOPRAZOLE 40 MG VIAL IV SCH ×2 (11:00→20:46)
[2021-02-05 13:35] LABS: Lymphocytes 20 % (20-55); Segmented Neutrophils 78 % (50-85); Total Cells Counted 100
[2021-02-05 13:40] LABS: Polychromasia Slight; Stomatocytes Slight
[2021-02-05 13:41] LABS: Platelet Estimate Normal
[2021-02-05] MEDS ORDERED: HYDROmorphone 2 MG/1 ML VIAL IV ONE (14:00)
[2021-02-05] MEDS: METHOCARBAMOL 500 MG TABLET PO PRN (20:45)
[2021-02-05] MEDS: TEMAZEPAM 15 MG CAPSULE PO SCH (20:45)
[2021-02-05] MEDS: ALUMINUM/MAGNES/SIMETH MAX STR 30 ML UDCUP PO PRN (20:45)
[2021-02-05] MEDS: LEVOFLOXACIN INJ 500 MG in PREMIX 1 EACH IV SCH (21:59)
[2021-02-06] MEDS: metroNIDAZOLE INJ 500 MG in PREMIX 1 EACH IV SCH (04:22)
[2021-02-06] MEDS: POTASSIUM CHLORIDE INJ 10 MEQ in DEXTROSE 5% NACL 0.9% 1,000 ML IV SCH (04:23)
[2021-02-06 07:59] LABS: Basophils # 0.1 10*3/uL (0.0-0.2); Basophils % 0.9 % (0.0-0.8); Eosinophils # 0.2 10*3/uL (0.0-0.87); Eosinophils % 2.5 % (0.00-10.9); Hematocrit 33.4 VOL% (42.0-52.0); Hemoglobin 10.7 GM/DL (14.0-18.0); Immature Granulocytes % 0.3 %; Immature Granulocytes Absolute 0.03 #; Lymphocytes # 1.7 10*3/uL (1.4-4.0); Mean Corpuscular Volume 90.5 FL (87-102); Mean Platelet Volume 9.3 FL (9.6-12.0); Monocytes % 5.8 % (1.7-12.7); Neutrophils % 71.5 % (38.7-73.9); Platelet Count 382 T/CUMM (130-400); Red Blood Count 3.69 MC/CUMM (3.8-5.5); Red Cell Distribution Width 14.3 % (9.3-17.3); White Blood Count 9.2 T/CUMM (4-12)
[2021-02-06] MEDS: SUCRALFATE 1 GM/10 ML UDCUP PO SCH ×2 (08:03→11:09)
[2021-02-06 08:16] LABS: Calcium 8.5 MG/DL (8.5-10.1); Osmolality,Calculated 277.4 MOS/KG (273-304); Potassium 4.6 MMOL/L (3.5-5.1)
[2021-02-06] MEDS: TAMSULOSIN 0.4 MG CAPSULE PO SCH (10:40)
[2021-02-06] MEDS: PANTOPRAZOLE 40 MG VIAL IV SCH (10:41)
[2021-02-06 15:58] VITALS: BP 147/87
== END 2021-02-06 16:19 | disposition home or self-care (01) | DRG 373 ==
LOC: EDUNIT# → EDBD → N.ED 10:15 → N.EDINP 15:00 → SUATTDRO 15:00 → N.EDINP 16:18 → N.3E 16:32
PROVIDERS: ADMIT Internal Medicine; ATTEND Internal Medicine

== ENCOUNTER 2021-02-13 09:12 | Observation (INO) ==
[2021-02-13] MEDS ORDERED: NITROGLYCERIN SL 0.4 MG TABLET SL ONE (09:34)
[2021-02-13] MEDS ORDERED: NITROGLYCERIN SL 0.4 MG TABLET SL PRN (09:34)
[2021-02-13] MEDS ORDERED: ASPIRIN 325 MG TABLET PO STA (09:34)
[2021-02-13] MEDS ORDERED: ENOXAPARIN 100 MG/ML SYRINGE SUBCUT STA (09:34)
[2021-02-13] MEDS ORDERED: ASPIRIN 325 MG TABLET ONE (09:35)
[2021-02-13 09:40] LABS: Basophils # 0.1 10*3/uL (0.0-0.2); Basophils % 0.4 % (0.0-0.8); Hematocrit 40.2 VOL% (42.0-52.0); Hemoglobin 12.9 GM/DL (14.0-18.0); Immature Granulocytes % 0.5 %; Lymphocytes # 0.9 10*3/uL (1.4-4.0); Lymphocytes % 4.2 % (21.2-54.2); Mean Corpuscular HGB Conc 32.1 GM/DL (32-36); Mean Corpuscular Volume 89.9 FL (87-102); Mean Platelet Volume 9.6 FL (9.6-12.0); Monocytes % 2.9 % (1.7-12.7); Platelet Count 462 T/CUMM (130-400); Red Blood Count 4.47 MC/CUMM (3.8-5.5); Red Cell Distribution Width 14.6 % (9.3-17.3); White Blood Count 21.1 T/CUMM (4-12)
[2021-02-13 09:52] LABS: Alanine Aminotransferase 14 U/L (16-61); Albumin 3.9 G/DL (3.4-5.0); Alkaline Phosphatase 133 U/L (45-117); Aspartate Amino Transferase 20 U/L (0-37); Bilirubin,Total < 0.39 MG/DL (0.2-1.0); Blood Urea Nitrogen 13 MG/DL (7-18); Calcium 9.6 MG/DL (8.5-10.1); Carbon Dioxide 27 MMOL/L (21-32); Estimated Glom Filtration Rate 64 ML/MIN; Glucose 129 MG/DL (74-106); Osmolality,Calculated 271.1 MOS/KG (273-304); Potassium 4.3 MMOL/L (3.5-5.1); Sodium 135 MMOL/L (136-145); Total Protein 8.8 G/DL (6.4-8.2)
[2021-02-13 09:59] LABS: Band Neutrophils 1 % (0-10); Eosinophils 1 % (0-10); Lymphocytes 1 % (20-55); Segmented Neutrophils 89 % (50-85); Total Cells Counted 100
[2021-02-13 10:01] LABS: Hypochromasia 1+; Microcytosis 1+; Platelet Estimate Increased
[2021-02-13] MEDS ORDERED: GLUCAGON 1 MG VIAL IM PRN (11:31)
[2021-02-13] MEDS ORDERED: ONDANSETRON 4 MG/2 ML VIAL IV PRN (11:31)
[2021-02-13] MEDS ORDERED: DEXTROSE 50% 25 GM/50 ML VIAL IV PRN (11:31)
[2021-02-13] MEDS: ENOXAPARIN 40 MG/0.4 ML SYRINGE SUBCUT SCH (13:19)
[2021-02-13] MEDS: SODIUM CHLORIDE 0.9% 1,000 ML IV SCH (13:30)
[2021-02-13] MEDS: PANTOPRAZOLE 40 MG TABLET PO SCH ×2 (13:30→20:56)
[2021-02-13] MEDS: amLODIPine 5 MG TABLET PO SCH (13:30)
[2021-02-13] MEDS ORDERED: PNEUMOCOCCAL VACCINE (13 VALENT) 0.5 ML SYRINGE IM ONE (14:51)
[2021-02-13] MEDS: SUCRALFATE 1 GM TABLET PO SCH ×2 (17:00→20:56)
[2021-02-13] MEDS: TRIAMTERENE/HCTZ 37.5-25 MG TABLET PO SCH (17:00)
[2021-02-14] MEDS: SODIUM CHLORIDE 0.9% 1,000 ML IV SCH ×2 (01:52→16:04)
[2021-02-14 05:14] LABS: Basophils # 0.1 10*3/uL (0.0-0.2); Basophils % 0.6 % (0.0-0.8); Eosinophils # 0.1 10*3/uL (0.0-0.87); Eosinophils % 0.2 % (0.00-10.9); Hematocrit 34.8 VOL% (42.0-52.0); Hemoglobin 11.5 GM/DL (14.0-18.0); Immature Granulocytes % 0.4 %; Immature Granulocytes Absolute 0.09 #; Lymphocytes # 1.7 10*3/uL (1.4-4.0); Mean Corpuscular Volume 89.5 FL (87-102); Mean Platelet Volume 9.6 FL (9.6-12.0); Monocytes % 4.3 % (1.7-12.7); Neutrophils % 86.5 % (38.7-73.9); Platelet Count 433 T/CUMM (130-400); Red Blood Count 3.89 MC/CUMM (3.8-5.5); Red Cell Distribution Width 14.8 % (9.3-17.3); White Blood Count 21.6 T/CUMM (4-12)
[2021-02-14 05:34] LABS: Albumin 2.9 G/DL (3.4-5.0); Bilirubin,Total 0.6 MG/DL (0.2-1.0); Calcium 8.5 MG/DL (8.5-10.1); Potassium 4.3 MMOL/L (3.5-5.1); Total Protein 7.6 G/DL (6.4-8.2)
[2021-02-14 05:36] LABS: Hypochromasia 1+; Lymphocytes 9 % (20-55); Microcytosis 1+; Platelet Estimate Adequate; Segmented Neutrophils 86 % (50-85); Total Cells Counted 100
[2021-02-14] MEDS ORDERED: TAMSULOSIN 0.4 MG CAPSULE PO SCH (09:00)
[2021-02-14] MEDS ORDERED: CHLORTHALIDONE 25 MG TABLET PO SCH (09:30)
[2021-02-14] MEDS: ENOXAPARIN 40 MG/0.4 ML SYRINGE SUBCUT SCH (12:00)
[2021-02-14] MEDS ORDERED: REGADENOSON 0.4 MG/5 ML SYRINGE IV ONE (12:02)
[2021-02-14] MEDS: TRIAMTERENE/HCTZ 37.5-25 MG TABLET PO SCH (13:32)
[2021-02-14] MEDS: SUCRALFATE 1 GM TABLET PO SCH ×3 (13:32→16:34)
[2021-02-14] MEDS: PANTOPRAZOLE 40 MG TABLET PO SCH (13:32)
[2021-02-14] MEDS: amLODIPine 5 MG TABLET PO SCH (14:02)
[2021-02-14 15:27] VITALS: BP 163/75
[2021-02-15] MEDS ORDERED: amLODIPine 5 MG TABLET PO SCH (09:00)
== END 2021-02-14 18:08 | disposition home or self-care (01) ==
LOC: EDUNIT# → EDBD → N.EDINP 09:12 → N.ED 09:12 → N.TELES 13:18
PROVIDERS: ADMIT Internal Medicine; ATTEND Internal Medicine

== ENCOUNTER 2021-12-13 08:02 | Observation (INO) ==
[2021-12-13] MEDS ORDERED: ASPIRIN 325 MG TABLET PO STA (08:27)
[2021-12-13 08:29] LABS: Basophils # 0.1 10*3/uL (0.0-0.2); Basophils % 0.4 % (0.0-0.8); Hematocrit 43.8 VOL% (42.0-52.0); Hemoglobin 14.4 GM/DL (14.0-18.0); Immature Granulocytes % 0.4 %; Immature Granulocytes Absolute 0.05 #; Lymphocytes # 0.9 10*3/uL (1.4-4.0); Lymphocytes % 6.4 % (21.2-54.2); Mean Corpuscular HGB Conc 32.9 GM/DL (32-36); Mean Corpuscular Volume 95.6 FL (87-102); Mean Platelet Volume 9.3 FL (9.6-12.0); Monocytes % 5.4 % (1.7-12.7); Neutrophils % 87.4 % (38.7-73.9); Platelet Count 468 T/CUMM (130-400); Red Blood Count 4.58 MC/CUMM (3.8-5.5)
[2021-12-13] MEDS ORDERED: ONDANSETRON 4 MG/2 ML VIAL IV STA (09:22)
[2021-12-13] MEDS ORDERED: MORPHINE 2 MG/1 ML SYRINGE IV STA (09:23)
[2021-12-13] MEDS ORDERED: MORPHINE 4 MG/1 ML VIAL ONE (09:26)
[2021-12-13 10:14] LABS: Albumin 3.6 G/DL (3.4-5.0); Bilirubin,Total 0.4 MG/DL (0.20-1.00); Osmolality,Calculated 271.2 MOS/KG (273-304); Potassium 3.5 MMOL/L (3.5-5.1); Total Protein 8.3 G/DL (6.4-8.2)
[2021-12-13] MEDS ORDERED: ALUM/MAG/SIMETH/LIDO VISC 1:1 30 ML BOTTLE PO ONE (13:06)
[2021-12-13] MEDS ORDERED: ONDANSETRON 4 MG/2 ML VIAL IV PRN (13:10)
[2021-12-13] MEDS ORDERED: ACETAMINOPHEN 325 MG TABLET PO PRN (13:10)
[2021-12-13] MEDS ORDERED: GLUCAGON 1 MG VIAL IM PRN (13:10)
[2021-12-13] MEDS ORDERED: DEXTROSE 10% 250 ML BAG IV PRN (13:10)
[2021-12-13] MEDS ORDERED: hydrALAZINE 20 MG/1 ML VIAL IV PRN (13:10)
[2021-12-13 13:20] LABS: Barbiturates Screen,Urine Negative (Negative); Benzodiazepines Screen,Urine Negative (Negative); Cannabinoid Screen,Urine Negative (Negative); Opiate Screen,Urine Positive (Negative); Phencyclidine Screen,Urine Negative (Negative)
[2021-12-13] MEDS: ENOXAPARIN 40 MG/0.4 ML SYRINGE SUBCUT SCH (13:36)
[2021-12-13] MEDS: SODIUM CHLORIDE 0.9% 1,000 ML IV SCH (13:37)
[2021-12-13 13:42] LABS: Thyroid Stimulating Hormone 0.38 uIU/ml (0.358-3.74)
[2021-12-13] MEDS ORDERED: MAGNESIUM SULF RIDER 2 GM/50 ML PREMIX IV ONE (13:54)
[2021-12-13 14:27] LABS: Folate 11.14 NG/ML (5.38-24.0)
[2021-12-13] MEDS: SUCRALFATE 1 GM/10 ML UDCUP PO SCH ×2 (16:19→20:47)
[2021-12-13] MEDS ORDERED: SUCRALFATE 1 GM/10 ML UDCUP PO SCH (16:30)
[2021-12-13] MEDS: LORazepam 2 MG/1 ML VIAL IV PRN ×2 (19:22→22:53)
[2021-12-13] MEDS: PANTOPRAZOLE 40 MG TABLET PO SCH (20:47)
[2021-12-14] MEDS: SODIUM CHLORIDE 0.9% 1,000 ML IV SCH (02:12)
[2021-12-14 06:58] LABS: Calcium 8.4 MG/DL (8.5-10.1); Osmolality,Calculated 265.5 MOS/KG (273-304); Potassium 3.6 MMOL/L (3.5-5.1)
[2021-12-14 07:18] LABS: Basophils # 0.1 10*3/uL (0.0-0.2); Basophils % 0.3 % (0.0-0.8); Hematocrit 41.4 VOL% (42.0-52.0); Hemoglobin 13.7 GM/DL (14.0-18.0); Immature Granulocytes % 0.3 %; Immature Granulocytes Absolute 0.06 #; Lymphocytes # 1.4 10*3/uL (1.4-4.0); Mean Corpuscular HGB Conc 33.1 GM/DL (32-36); Mean Platelet Volume 10.3 FL (9.6-12.0); Monocytes % 5.5 % (1.7-12.7); Neutrophils % 85.9 % (38.7-73.9); Platelet Count 332 T/CUMM (130-400); Red Blood Count 4.36 MC/CUMM (3.8-5.5); Red Cell Distribution Width 14.6 % (9.3-17.3); White Blood Count 17.9 T/CUMM (4-12)
[2021-12-14] MEDS ORDERED: MULTIVITAMIN (CENTRUM) TABLET PO SCH (09:00)
[2021-12-14] MEDS ORDERED: FOLIC ACID 1 MG TABLET PO SCH (09:00)
[2021-12-14] MEDS ORDERED: TAMSULOSIN 0.4 MG CAPSULE PO SCH (09:00)
[2021-12-14] MEDS ORDERED: amLODIPine 5 MG TABLET PO SCH (09:00)
[2021-12-14] MEDS ORDERED: THIAMINE 100 MG TABLET PO SCH (09:00)
[2021-12-14] MEDS ORDERED: COLCHICINE 0.6 MG CAPSULE PO SCH (09:00)
[2021-12-14] MEDS ORDERED: ALUM/MAG/SIMETH/LIDO VISC 1:1 30 ML BOTTLE PO ONE (09:17)
[2021-12-14] MEDS: PANTOPRAZOLE 40 MG TABLET PO SCH (09:31)
[2021-12-14] MEDS: SUCRALFATE 1 GM/10 ML UDCUP PO SCH ×2 (09:32→12:50)
[2021-12-14 12:15] VITALS: BP 146/84
[2021-12-14] MEDS: ENOXAPARIN 40 MG/0.4 ML SYRINGE SUBCUT SCH (13:42)
[2021-12-14] MEDS: LORazepam 2 MG/1 ML VIAL IV PRN (13:53)
== END 2021-12-14 14:37 | disposition home health service (06) ==
LOC: N.EDINP 08:02 → N.ED 08:02 → SUATTDRO 12:10 → N.TELES 21:53
PROVIDERS: ADMIT Hospitalist; ATTEND Emergency Medicine